=== PATIENT | female | born 1950 | race Caucasian/White ===

== ENCOUNTER 2023-11-24 09:15 | Outpatient (POV) | payer SELFPAY | END 2023-11-24 23:59 | disposition home or self-care (01) | LOC: SC 11-25 06:26 | PROVIDERS: Visit Provider Dermatology | DX: Z00.00 Encounter for general adult medical examination without abnormal findings (principal) ==

== ENCOUNTER 2024-05-09 08:54 | Outpatient (CLI) | payer MEDICARE, SELFPAY ==
--- NOTE | 2024-05-09 08:56 | XR_ITS ---
FINAL REPORT TECHNIQUE: Bone mineral density was calculated of the lumbar spine and hip. CLINICAL HISTORY: SCREENING COMPARISON: 10/07/2023 FINDINGS: Using L1-4, the bone mineral density of the spine is 0.910 g/cm2, corresponding to T-score of -1.2, and a Z-score of 1.1. Using the right hip, the bone mineral density of the femoral neck is 0.609 g/cm2, corresponding to a T-score of -2.2, and a Z-score of -0.1. Using the left hip, the bone mineral density of the femoral neck is 0.752 g/cm?, corresponding to a T-score of -1.6, and a Z-score of 0.2. NOTE: T-score: Standard deviation compared with peak bone mass of young adult mean. *Following the recommendations of the International Society of Bone densitometry, classification of hip BMD is based on the lower of two T-scores; total hip or femoral neck. IMPRESSION: Diminished bone mineral density of the lumbar spine and bilateral hips consistent with osteopenia. Reviewed, Interpreted and Dictated by Jennifer Corea MD Transcribed by Amanda Vidales Authenticated and [facility]
== END 2024-05-09 23:59 | disposition home or self-care (01) ==
LOC: RAD 08:54
PROVIDERS: PCP Nurse Practitioner Family; Visit Provider Internal Medicine
DX: Z78.0 Asymptomatic menopausal state (principal)
CPT/HCPCS: 77080